=== PATIENT | male | born 1960 | race Caucasian/White ===

== ENCOUNTER → 2019-06-12 | Day surgery (SDC) | payer OTHER ==
[~2019-06-12] MED LIST: ACETAMINOPHEN 325 MG TABLET PO PRN; ALBUTEROL SULFATE 2.5 MG/3 ML NEBU. NEB PRN; ASPI81TA59 PO; ATOR20TA PO; ATROPINE 0.5 MG/5 ML DISP.SYRIN. IV PRN; IV RINGERS SOLUTION,LACTATED 1,000 ML IV SCH; ONDANSETRON PF 4 MG/2 ML VIAL. IV PRN; PHENOL ORAL SPRAY 177ML BOTTLE. MM PRN; PROPOFOL 40 ML IV ONE; diphenhydrAMINE 50 MG/ML VIAL IV PRN
[2019-06-12 14:35] VITALS: BP 118/74
--- NOTE | 2019-06-14 14:07 | PATHOLOGY ---
[facility] Accession Number: [id number] . 01 Material submitted: . colon - TRANSVERSE POLYP. Modifiers: transverse . 01 Clinical history: . None provided . 02 Diagnosis: Colon biopsies, transverse colon polyp: - Hyperplastic polyp. ([facility] 06/14/2019) [facility] 06/14/2019 0905 Local . 02 Comment: There are no adenomatous changes or evidence of malignancy. ([facility] 06/14/2019) . 02 Electronically signed: . Patrice Stark MD, Pathologist NPI- [id number] . 01 Gross description: . The specimen is received in formalin, labeled "Leland Crhis, transverse polyp". Received are two segments of pale sinclair soft tissue ranging in size from 0.2 to 0.3 cm in maximum dimensions. The specimen is submitted entirely in cassette A1. ([facility]; 06/13/2019) QAC/QAC 06/13/2019 1755 Local . 02 Pathologist provided ICD-10: K63.5 . 02 CPT . 289234 Specimen Comment: A courtesy copy of this report has been sent to [phone], [phone] Specimen Comment: [phone] Specimen Comment: Report sent to / DR JONES Performed at: 01 [facility] [address], [place] [id number] MD Gary Valencia MD Phone: [phone] Performed at: 02 [facility] [place] [address] [place], [place] [id number] MD Patrice Stark MD Phone: [phone]
== END ==
LOC: SURG 12:16
PROVIDERS: ATTEND Emergency Medicine
DX: Z12.11 Encounter for screening for malignant neoplasm of colon (principal); K63.5 Polyp of colon; E78.00 Pure hypercholesterolemia, unspecified; Z79.82 Long term (current) use of aspirin; Z87.39 Personal history of other diseases of the musculoskeletal system and connective tissue; Z85.828 Personal history of other malignant neoplasm of skin
CPT/HCPCS: 45380; 88305; J2704; J7120